=== PATIENT | female | born 1945 | race Caucasian/White ===

== ENCOUNTER 2021-06-24 13:15 | Outpatient (CLI) | payer MEDICARE | END 2021-06-24 13:16 | disposition home or self-care (01) | LOC: CSHMAMMO 13:15 | PROVIDERS: ATTEND Specialist | DX: Z13.820 Encounter for screening for osteoporosis (principal); Z78.0 Asymptomatic menopausal state; Z85.3 Personal history of malignant neoplasm of breast | CPT/HCPCS: 77066; 77080; G0279 ==

== ENCOUNTER 2022-01-30 14:41 | Outpatient (CLI) | payer MEDICARE | END 2022-01-30 14:42 | disposition home or self-care (01) | LOC: CSHULT 14:41 | PROVIDERS: ATTEND Family Medicine | DX: M79.662 Pain in left lower leg (principal); M79.89 Other specified soft tissue disorders ==

== ENCOUNTER 2022-02-13 14:33 | Outpatient (CLI) | payer MEDICARE ==
[2022-02-13 16:27] LABS: Hemoglobin 11.5 g/dL (12.0-15.5); Mean Corpuscular HGB CONC 33.9 g/dL (32.0-36.0); Mean Corpuscular Hemoglobin 30.8 pg (27.0-33.0); Mean Corpuscular Volume 90.9 fl (81.6-98.3); Mean Platelet Volume 11.2 fl (7.4-10.4); Platelet Count 311 10x3/uL (150-450); RBC Distribution Width 17.2 % (11.5-14.5); Red Blood Cell (RBC) Count 3.73 10x6/uL (3.90-5.03); White Blood Cell (WBC) Count 7.7 10x3/uL (3.5-10.5)
[2022-02-13 16:52] LABS: PTT 27.9 sec (22.0-33.0); Prothrombin Time 11.3 sec (9.5-12.1)
[2022-02-13 16:54] LABS: Anion Gap 14 mmol/L (10-20); BUN (Urea Nitrogen) 10 mg/dL (9.8-20.1); Calc. Creatinine Clearance 0 mL/min (70-130); Calcium 8.8 mg/dL (7.8-10.44); Carbon Dioxide 21 mmol/L (23-31); Chloride 108 mmol/L (98-107); Estimated GFR 77; Glucose 131 mg/dL (83-110); Potassium 3.3 mmol/L (3.5-5.1); Sodium 140 mmol/L (136-145)
== END 2022-02-13 14:34 | disposition home or self-care (01) ==
LOC: CSHLAB 14:33
PROVIDERS: ATTEND Orthopaedic Surgery
DX: Z01.812 Encounter for preprocedural laboratory examination (principal); Z20.822 Contact with and (suspected) exposure to COVID-19; M16.11 Unilateral primary osteoarthritis, right hip
CPT/HCPCS: 80048; 85027; 85610; 85730; 87811

== ENCOUNTER 2022-02-18 05:32 | Inpatient (IN) | payer MEDICARE ==
[2022-02-14 17:18] VITALS: BMI 30.2
[2022-02-18] MEDS ORDERED: Bupivacaine 0.25% HCL 30 ML VIAL ONE (06:11)
[2022-02-18] MEDS ORDERED: EPINEPHrine 1 MG/ML AMP ONE ×2 (06:11→09:04)
[2022-02-18] MEDS ORDERED: Neomycin-Polymyxin 1 ML AMP ONE (06:12)
[2022-02-18] MEDS ORDERED: Tranexamic Acid 1,000 MG/10 ML VIAL ONE (06:18)
[2022-02-18] MEDS ORDERED: Rocuronium Bromide 10 MG/ML (10ML VIAL) ONE (06:34)
[2022-02-18] MEDS ORDERED: PROPOFOL 20 ML ONE (06:34)
[2022-02-18] MEDS ORDERED: Fentanyl 100 MCG/2 ML VIAL ONE ×3 (06:34→10:03)
[2022-02-18] MEDS ORDERED: Lidocaine 1% PF 5 ML VIAL ONE (06:34)
[2022-02-18] MEDS ORDERED: CEFAZOLIN 2 GM VIAL ONE (06:54)
[2022-02-18] MEDS ORDERED: PHENYLEPHRINE-NS 100 MCG/ML 10 ML SYRINGE ONE (08:47)
[2022-02-18] MEDS ORDERED: Ondansetron PF 4 MG/2 ML Vial ONE (08:56)
[2022-02-18] MEDS ORDERED: Glycopyrrolate 0.2 MG/ML 5 ML SYRINGE ONE (09:01)
[2022-02-18] MEDS ORDERED: Promethazine HCl 25 MG/ML VIAL IVPB PRN (09:21)
[2022-02-18] MEDS ORDERED: Promethazine HCl 25 MG/ML VIAL IM PRN (09:21)
[2022-02-18] MEDS ORDERED: Ondansetron HCl/PF 4 MG/2 ML Vial IVP PRN (09:21)
[2022-02-18] MEDS ORDERED: Acetaminophen 325 MG TAB PO PRN (11:15)
[2022-02-18] MEDS ORDERED: Bisacodyl 10 MG SUPP PR PRN (11:15)
[2022-02-18] MEDS ORDERED: Cepastat Lozenges 1 LOZ PO PRN (11:15)
[2022-02-18] MEDS ORDERED: Tranexamic Acid 1,000 MG in Sodium Chloride 0.9% 100 ML IVPB SCH (11:15)
[2022-02-18] MEDS ORDERED: HYDROcodone/Acetaminophen 10/325 mg Tablet PO PRN ×2 (11:15)
[2022-02-18] MEDS ORDERED: Morphine 2 MG/ML VIAL SLOW IVP PRN (11:18)
[2022-02-18] MEDS: Morphine 4 MG/ML VIAL SLOW IVP PRN ×3 (12:18→20:23)
[2022-02-18] MEDS: Sodium Chloride 0.9% 1,000 ML IV SCH ×2 (12:26→22:24)
[2022-02-18] MEDS ORDERED: HumaLOG 300 UNITS/3 ML VIAL SC PRN ×2 (13:42)
[2022-02-18] MEDS ORDERED: Dextrose 5% in Water 1,000 ML IV PRN (13:42)
[2022-02-18] MEDS ORDERED: Dextrose 50% Abboject 50 ML SYRINGE SLOW IVP PRN (13:42)
[2022-02-18] MEDS ORDERED: Labetalol HCl 100 MG/20 ML VIAL SLOW IVP SCH ×2 (13:45→18:05)
[2022-02-18] MEDS ORDERED: Lisinopril 20 MG TAB PO SCH (14:00)
[2022-02-18] MEDS ORDERED: Labetalol HCl 100 MG/20 ML VIAL SLOW IVP PRN (18:04)
[2022-02-18] MEDS: Ondansetron PF 4 MG/2 ML Vial IVP PRN (20:23)
[2022-02-18] MEDS ORDERED: Aspirin 81 mg Enteric Coated Tablet PO SCH (21:00)
[2022-02-18] MEDS ORDERED: Sodium Chloride 0.9% 50 ML ONE (22:24)
[2022-02-18] MEDS: Aspirin Chewable 81 MG TAB PO SCH (22:25)
[2022-02-18] MEDS: Dronedarone HCl 400 MG TAB PO SCH (22:25)
[2022-02-18] MEDS: Topiramate 25 MG TAB PO SCH (22:25)
[2022-02-18] MEDS: Calcium Carbonate 600 MG + Vit D TAB PO SCH (22:25)
[2022-02-18] MEDS: Atorvastatin Calcium 10 MG TAB PO SCH (22:25)
[2022-02-18] MEDS: Carvedilol 25 MG TAB PO SCH (22:26)
[2022-02-18] MEDS: Anastrozole 1 MG TAB PO SCH (22:40)
[2022-02-19] MEDS: Morphine 4 MG/ML VIAL SLOW IVP PRN ×5 (04:05→21:43)
[2022-02-19 07:56] LABS: Hemoglobin 10.9 g/dL (12.0-15.5); Mean Corpuscular HGB CONC 33.3 g/dL (32.0-36.0); Mean Corpuscular Hemoglobin 31.6 pg (27.0-33.0); Mean Corpuscular Volume 94.8 fl (81.6-98.3); Mean Platelet Volume 10.8 fl (7.4-10.4); Platelet Count 196 10x3/uL (150-450); Red Blood Cell (RBC) Count 3.45 10x6/uL (3.90-5.03); White Blood Cell (WBC) Count 14.5 10x3/uL (3.5-10.5)
[2022-02-19] MEDS: Sodium Chloride 0.9% 1,000 ML IV SCH ×2 (08:23→17:16)
[2022-02-19] MEDS: Calcium Carbonate 600 MG + Vit D TAB PO SCH ×2 (08:24→21:41)
[2022-02-19] MEDS: Aspirin Chewable 81 MG TAB PO SCH ×2 (08:24→21:41)
[2022-02-19] MEDS: Carvedilol 25 MG TAB PO SCH ×2 (08:24→21:42)
[2022-02-19] MEDS: Senokot S 8.6-50 MG TAB PO SCH ×2 (08:24→21:42)
[2022-02-19] MEDS: Lisinopril 20 MG TAB PO SCH (08:24)
[2022-02-19] MEDS: Multivit, Therapeutic 1 TAB PO SCH (08:24)
[2022-02-19] MEDS: metFORMIN 500 MG TAB PO SCH ×2 (08:24→17:15)
[2022-02-19] MEDS: Topiramate 25 MG TAB PO SCH ×2 (08:27→21:41)
[2022-02-19] MEDS: Dronedarone HCl 400 MG TAB PO SCH ×2 (08:28→21:42)
[2022-02-19] MEDS ORDERED: Multivitamin W/ Minerals 1 TAB PO SCH (09:00)
[2022-02-19] MEDS: Atorvastatin Calcium 10 MG TAB PO SCH (21:41)
[2022-02-19] MEDS: Anastrozole 1 MG TAB PO SCH (21:41)
[2022-02-20] MEDS: Sodium Chloride 0.9% 1,000 ML IV SCH
[2022-02-20 05:27] LABS: Mean Corpuscular HGB CONC 33.3 g/dL (32.0-36.0); Mean Corpuscular Volume 95.9 fl (81.6-98.3); Mean Platelet Volume 11.1 fl (7.4-10.4); Platelet Count 130 10x3/uL (150-450); RBC Distribution Width 16.5 % (11.5-14.5); Red Blood Cell (RBC) Count 2.19 10x6/uL (3.90-5.03); White Blood Cell (WBC) Count 11.5 10x3/uL (3.5-10.5)
[2022-02-20] MEDS ORDERED: Morphine IR Tab 15 MG TAB PO PRN (10:33)
[2022-02-20] MEDS: Morphine 4 MG/ML VIAL SLOW IVP PRN (10:33)
[2022-02-20] MEDS ORDERED: Ketorolac Tromethamine 30 MG/ML VIAL IVP PRN (10:34)
[2022-02-20] MEDS: Aspirin Chewable 81 MG TAB PO SCH ×2 (10:35→21:53)
[2022-02-20] MEDS: Multivit, Therapeutic 1 TAB PO SCH (10:35)
[2022-02-20] MEDS: Lisinopril 20 MG TAB PO SCH (10:35)
[2022-02-20] MEDS: Topiramate 25 MG TAB PO SCH ×2 (10:35→21:52)
[2022-02-20] MEDS: Carvedilol 25 MG TAB PO SCH (10:35)
[2022-02-20] MEDS: Calcium Carbonate 600 MG + Vit D TAB PO SCH ×2 (10:35→21:52)
[2022-02-20] MEDS: Senokot S 8.6-50 MG TAB PO SCH ×2 (10:36→21:52)
[2022-02-20] MEDS: Dronedarone HCl 400 MG TAB PO SCH ×2 (10:38→21:52)
[2022-02-20] MEDS: metFORMIN 500 MG TAB PO SCH ×2 (10:55→17:51)
[2022-02-20 11:21] LABS: Hemoglobin 9.7 g/dL (12.0-15.5)
[2022-02-20 11:30] LABS: Anion Gap 10 mmol/L (10-20); BUN (Urea Nitrogen) 15 mg/dL (9.8-20.1); Calc. Creatinine Clearance 53 mL/min (70-130); Calcium 8.3 mg/dL (7.8-10.44); Carbon Dioxide 19 mmol/L (23-31); Chloride 102 mmol/L (98-107); Estimated GFR 54; Glucose 124 mg/dL (83-110); Potassium 3.9 mmol/L (3.5-5.1); Sodium 127 mmol/L (136-145)
[2022-02-20] MEDS ORDERED: Sodium Chloride 0.9% 500 ML IV SCH ×2 (11:30→14:00)
[2022-02-20] MEDS ORDERED: Hydrocortisone Sod Succ/PF 100 mg/2 ml Vial IVP SCH ×2 (14:00→18:00)
[2022-02-20 14:52] LABS: ALT (SGPT) Less than 6 U/L (8-55); AST (SGOT) 21 U/L (5-34); Albumin 2.1 g/dL (3.4-4.8); Alkaline Phosphatase 62 U/L (40-110); Anion Gap 8 mmol/L (10-20); BUN (Urea Nitrogen) 16 mg/dL (9.8-20.1); Bilirubin, Total 0.9 mg/dL (0.2-1.2); Calc. Creatinine Clearance 57 mL/min (70-130); Calcium 7.9 mg/dL (7.8-10.44); Carbon Dioxide 19 mmol/L (23-31); Chloride 101 mmol/L (98-107); Estimated GFR 58; Glucose 173 mg/dL (83-110); Potassium 3.7 mmol/L (3.5-5.1); Protein, Total 4.1 g/dL (5.8-8.1); Sodium 124 mmol/L (136-145)
[2022-02-20 14:54] LABS: #Eosinphils 0.1 10x3/uL (0.0-0.5); #Neutrophils 11.9 10x3/uL (1.5-8.4); %Basophils 0.3 % (0.0-2.0); %Eosinophils 0.3 % (0.0-6.0); %Lymphocytes 9.2 % (18.0-47.0); %Monocytes 6.9 % (0.0-10.0); %Neutrophils 82.5 % (40.0-75.0); Hemoglobin 8.5 g/dL (12.0-15.5); Mean Corpuscular HGB CONC 34.1 g/dL (32.0-36.0); Mean Corpuscular Hemoglobin 31.5 pg (27.0-33.0); Mean Corpuscular Volume 92.2 fl (81.6-98.3); Mean Platelet Volume 10.9 fl (7.4-10.4); Platelet Count 148 10x3/uL (150-450); RBC Distribution Width 16.1 % (11.5-14.5); White Blood Cell (WBC) Count 14.4 10x3/uL (3.5-10.5)
[2022-02-20] MEDS: Albumin 25% 25 GM/100 ML BOT IVPB SCH (17:46)
[2022-02-20 18:31] LABS: Anion Gap 10 mmol/L (10-20); BUN (Urea Nitrogen) 15 mg/dL (9.8-20.1); Calc. Creatinine Clearance 62 mL/min (70-130); Calcium 7.9 mg/dL (7.8-10.44); Carbon Dioxide 18 mmol/L (23-31); Chloride 104 mmol/L (98-107); Estimated GFR 65; Glucose 130 mg/dL (83-110); Potassium 3.5 mmol/L (3.5-5.1); Sodium 128 mmol/L (136-145)
[2022-02-20] MEDS ORDERED: Carvedilol 12.5 MG TAB PO SCH (21:00)
[2022-02-20] MEDS: Anastrozole 1 MG TAB PO SCH (21:53)
[2022-02-20] MEDS: Carvedilol 12.5 MG TAB PO SCH (21:53)
[2022-02-20] MEDS: Atorvastatin Calcium 10 MG TAB PO SCH (21:53)
[2022-02-21 04:03] LABS: Hemoglobin 8.3 g/dL (12.0-15.5); Mean Corpuscular HGB CONC 36.2 g/dL (32.0-36.0); Mean Corpuscular Hemoglobin 32.4 pg (27.0-33.0); Mean Corpuscular Volume 89.5 fl (81.6-98.3); Mean Platelet Volume 10.1 fl (7.4-10.4); Platelet Count 145 10x3/uL (150-450); RBC Distribution Width 16.3 % (11.5-14.5); Red Blood Cell (RBC) Count 2.56 10x6/uL (3.90-5.03); White Blood Cell (WBC) Count 12.6 10x3/uL (3.5-10.5)
[2022-02-21] MEDS: Senokot S 8.6-50 MG TAB PO SCH (09:08)
[2022-02-21] MEDS: Calcium Carbonate 600 MG + Vit D TAB PO SCH (09:09)
[2022-02-21] MEDS: metFORMIN 500 MG TAB PO SCH (09:09)
[2022-02-21] MEDS: Multivit, Therapeutic 1 TAB PO SCH (09:09)
[2022-02-21] MEDS: Aspirin Chewable 81 MG TAB PO SCH (09:09)
[2022-02-21] MEDS: Carvedilol 12.5 MG TAB PO SCH (09:10)
[2022-02-21] MEDS: Dronedarone HCl 400 MG TAB PO SCH (09:10)
[2022-02-21] MEDS: Lisinopril 20 MG TAB PO SCH (09:10)
[2022-02-21] MEDS: Topiramate 25 MG TAB PO SCH (09:11)
[2022-02-21 10:08] LABS: Anion Gap 13 mmol/L (10-20); BUN (Urea Nitrogen) 17 mg/dL (9.8-20.1); Calc. Creatinine Clearance 70 mL/min (70-130); Calcium 8.2 mg/dL (7.8-10.44); Carbon Dioxide 17 mmol/L (23-31); Chloride 103 mmol/L (98-107); Estimated GFR 75; Glucose 113 mg/dL (83-110); Sodium 128 mmol/L (136-145)
[2022-02-21 10:21] LABS: Potassium 4.7 mmol/L (3.5-5.1)
[2022-02-21 15:53] VITALS: TEMP 97.6
[2022-02-21 15:54] VITALS: BP 122/64
[2022-02-21] MEDS: Ondansetron PF 4 MG/2 ML Vial IVP PRN (16:00)
[2022-02-21] MEDS: Albumin 25% 25 GM/100 ML BOT IVPB SCH (18:54)
== END 2022-02-21 16:15 | disposition swing bed (61) | DRG 470 ==
LOC: CSHSDC 05:32 → CSHTELE 11:07 → UNDOADMIN 11:07 → CSHTELE 02-19 07:31
PROVIDERS: ADMIT Orthopaedic Surgery; ATTEND Family Medicine
PROC: 0SR901Z Replacement of Right Hip Joint with Metal Synthetic Substitute, Open Approach (ICD-10-PCS; principal; 2022-02-18)
DX: M16.11 Unilateral primary osteoarthritis, right hip (principal); E87.1 Hypo-osmolality and hyponatremia; I10 Essential (primary) hypertension; E78.5 Hyperlipidemia, unspecified; E11.9 Type 2 diabetes mellitus without complications; Z96.1 Presence of intraocular lens; I25.10 Atherosclerotic heart disease of native coronary artery without angina pectoris; C50.919 Malignant neoplasm of unspecified site of unspecified female breast; R33.9 Retention of urine, unspecified; K59.00 Constipation, unspecified; K21.9 Gastro-esophageal reflux disease without esophagitis; G43.909 Migraine, unspecified, not intractable, without status migrainosus; D64.9 Anemia, unspecified; I95.9 Hypotension, unspecified; E88.09 Other disorders of plasma-protein metabolism, not elsewhere classified; Z88.1 Allergy status to other antibiotic agents; Z79.899 Other long term (current) drug therapy; Z79.84 Long term (current) use of oral hypoglycemic drugs; Z95.2 Presence of prosthetic heart valve; Z90.49 Acquired absence of other specified parts of digestive tract; Z91.048 Other nonmedicinal substance allergy status; Z91.041 Radiographic dye allergy status; Z88.8 Allergy status to other drugs, medicaments and biological substances; Z95.1 Presence of aortocoronary bypass graft; Z90.89 Acquired absence of other organs; Z98.49 Cataract extraction status, unspecified eye; Z82.49 Family history of ischemic heart disease and other diseases of the circulatory system; Z83.3 Family history of diabetes mellitus
CPT/HCPCS: 36415; 36416; 76770; 80048; 83930; 83935; 84300; 85027; 86850; 86900; 86901; C1713; C1776; J0171; J0690; J1720; J2270; J2405; J2704; J3010; J3370; J7030; J7050; P9047; S0020

== ENCOUNTER 2022-12-10 14:13 | Outpatient (CLI) | payer MEDICARE | END 2022-12-10 14:14 | disposition home or self-care (01) | LOC: CSHRAD 14:13 | PROVIDERS: ATTEND Family Medicine | DX: R05.1 Acute cough (principal) | CPT/HCPCS: 71046 ==

== ENCOUNTER 2023-03-18 16:34 | Emergency (ER) | payer MEDICARE ==
[2023-03-18 17:27] LABS: ALT (SGPT) 14 U/L (8-55); AST (SGOT) 18 U/L (5-34); Albumin 4.3 g/dL (3.4-4.8); Alkaline Phosphatase 58 U/L (40-110); Anion Gap 13 mmol/L (10-20); BUN (Urea Nitrogen) 15 mg/dL (9.8-20.1); Bilirubin, Total 0.6 mg/dL (0.2-1.2); Calc. Creatinine Clearance 0 mL/min (70-130); Carbon Dioxide 28 mmol/L (23-31); Chloride 104 mmol/L (98-107); Estimated GFR 43; Glucose 93 mg/dL (83-110); Potassium 4.2 mmol/L (3.5-5.1); Protein, Total 7.3 g/dL (5.8-8.1); Sodium 141 mmol/L (136-145)
[2023-03-18 17:29] LABS: #Basophils 0.1 10x3/uL (0.0-0.2); #Eosinphils 0.4 10x3/uL (0.0-0.5); #Monocytes 0.6 10x3/uL (0.0-1.1); #Neutrophils 3.3 10x3/uL (1.5-8.4); %Basophils 1.6 % (0.0-2.0); %Eosinophils 4.7 % (0.0-6.0); %Lymphocytes 44.8 % (18.0-47.0); %Monocytes 7.4 % (0.0-10.0); %Neutrophils 40.9 % (40.0-75.0); Hematocrit 37.3 % (34.9-44.5); Hemoglobin 12.5 g/dL (12.0-15.5); Mean Corpuscular HGB CONC 33.5 g/dL (32.0-36.0); Mean Corpuscular Hemoglobin 31.4 pg (27.0-33.0); Mean Corpuscular Volume 93.7 fl (81.6-98.3); Platelet Count 221 10x3/uL (150-450); RBC Distribution Width 13.7 % (11.5-14.5); Red Blood Cell (RBC) Count 3.98 10x6/uL (3.90-5.03); White Blood Cell (WBC) Count 8.1 10x3/uL (3.5-10.5)
[2023-03-18 17:33] LABS: Troponin I 0.017 ng/mL (< 0.028)
[2023-03-18] MEDS ORDERED: Mag-Al Plus 1200 MG/1200 MG/120 MG/30 ML UDCUP ONE (17:42)
[2023-03-18 19:27] LABS: Troponin I 0.012 ng/mL (< 0.028)
== END 2023-03-18 20:00 | disposition home or self-care (01) ==
LOC: CSHERS 16:34
DX: R29.91 Unspecified symptoms and signs involving the musculoskeletal system (principal)
CPT/HCPCS: 36415; 71045; 80053; 84484; 85025; 93005

== ENCOUNTER 2023-07-17 11:32 | Outpatient (CLI) | payer MEDICARE | END 2023-07-17 11:33 | disposition home or self-care (01) | LOC: CSHMAMMO 11:32 | PROVIDERS: ATTEND Specialist | DX: Z12.31 Encounter for screening mammogram for malignant neoplasm of breast (principal); Z80.3 Family history of malignant neoplasm of breast; Z85.3 Personal history of malignant neoplasm of breast; Z91.89 Other specified personal risk factors, not elsewhere classified | CPT/HCPCS: 77063; 77067 ==

== ENCOUNTER 2024-06-21 09:46 | Outpatient (CLI) | payer OTHER | END 2024-06-21 09:47 | disposition home or self-care (01) | LOC: CSHULT 09:46 | PROVIDERS: ATTEND Internal Medicine Nephrology | DX: I12.9 Hypertensive chronic kidney disease with stage 1 through stage 4 chronic kidney disease, or unspecified chronic kidney disease (principal); N18.2 Chronic kidney disease, stage 2 (mild); N28.1 Cyst of kidney, acquired | CPT/HCPCS: 76770; 93976 ==

== ENCOUNTER 2024-07-06 08:47 | Outpatient (CLI) | payer OTHER | END 2024-07-06 08:48 | disposition home or self-care (01) | LOC: CSHCT 08:47 | PROVIDERS: ATTEND Psychiatry & Neurology Neurology | DX: R41.3 Other amnesia (principal); I63.81 Other cerebral infarction due to occlusion or stenosis of small artery; G31.9 Degenerative disease of nervous system, unspecified | CPT/HCPCS: 70450 ==

== ENCOUNTER 2024-07-19 09:10 | Outpatient (CLI) | payer OTHER | END 2024-07-19 09:11 | disposition home or self-care (01) | LOC: CSHMRI 09:10 | PROVIDERS: ATTEND Psychiatry & Neurology Neurology | DX: R93.89 Abnormal findings on diagnostic imaging of other specified body structures (principal); G31.9 Degenerative disease of nervous system, unspecified | CPT/HCPCS: 70551 ==

== ENCOUNTER 2024-07-20 13:39 | Outpatient (CLI) | payer OTHER | END 2024-07-20 13:40 | disposition home or self-care (01) | LOC: CSHMAMMO 13:39 | PROVIDERS: ATTEND Family Medicine | DX: Z12.31 Encounter for screening mammogram for malignant neoplasm of breast (principal); Z85.3 Personal history of malignant neoplasm of breast; Z80.3 Family history of malignant neoplasm of breast; Z91.89 Other specified personal risk factors, not elsewhere classified; Z98.890 Other specified postprocedural states | CPT/HCPCS: 77063; 77067 ==